=== PATIENT | male | born 1990 | race Caucasian/White ===

== ENCOUNTER 2017-04-02 18:16 | Emergency (ER) | payer SELFPAY ==
[2017-04-02] VITALS (9 sets, daily range): BP systolic 145–213; BP diastolic 66–118; PULSE 84–105; RESP 12–20; TEMP 98.5; O2SAT 95–98
--- NOTE | 2017-04-02 21:41 | PD ---
HPI Chief Complaint: Chest Pain Time Seen by Provider: 21:04 Travel History International Travel<30 days: No Contact w/Intl Traveler<30days: No Traveled to known affect area: No History of Present Illness HPI Patient is a 27-year-old male presents emergency Department with chest tightness middle of his chest which was preceded by left arm numbness and tingling and sharp pain. Patient states she's also experienced shortness of breath as well as some nausea without vomiting. Patient states he is an occasional smoker 1-2 cigarettes a week. Denies a history of high blood pressure high cholesterol or diabetes but has not had a checkup some time. States his father had a heart attack 40 and was by 50. He is morbidly obese. Denies any history of blood clots in his chest or legs denies any history of long trips. Did not try anything prior to arrival to the emergency department. Cannot identify any alleviating or exacerbating factors. PFSH Past Medical History Tetanus Vaccination: > 5 Years Past Surgical History Tonsillectomy: Yes Social History Alcohol Use: No Tobacco Use: Yes (social smoker (usually 3-4/month)) Substance Use: No Allergies-Medications (Allergen,Severity, Reaction): Coded Allergies: Codeine (Verified Allergy, Severe, Itching, 04/02/17) Reported Meds & Prescriptions Reported Meds & Active Scripts Active No Active Prescriptions or Reported Medications Review of Systems Except as stated in HPI: all other systems reviewed are Neg Physical Exam Narrative GENERAL: Well-developed well-nourished morbidly obese patient discomfort. SKIN: Focused skin assessment warm/dry. HEAD: Atraumatic. Normocephalic. EYES: Pupils equal and round. No scleral icterus. No injection or drainage. ENT: No nasal bleeding or discharge. Mucous membranes pink and moist. NECK: Trachea midline. No JVD. CARDIOVASCULAR: Regular rate and rhythm. No murmur appreciated. 2+ bilateral equal pulses in all 4 extremities. RESPIRATORY: No accessory muscle use. Clear to auscultation. Breath sounds equal bilaterally. GASTROINTESTINAL: Abdomen soft, non-tender, nondistended. Hepatic and splenic margins not palpable. MUSCULOSKELETAL: No obvious deformities. No clubbing. No cyanosis. No edema. NEUROLOGICAL: Awake and alert. No obvious cranial nerve deficits. Motor grossly within normal limits. Normal speech. PSYCHIATRIC: Appropriate mood and affect; insight and judgment normal. Data Data Last Documented VS Vital Signs Date Time Temp Pulse Resp B/P Pulse Ox O2 Delivery O2 Flow Rate FiO2 04/03/17 00:35 86 16 143/78 97 Room Air 04/02/17 21:44 2 04/02/17 18:18 98.5 Orders Electrocardiogram (04/02/17 20:03) Ckmb (Isoenzyme) Profile (04/02/17 21:39) Complete Blood Count With Diff (04/02/17 21:39) Comprehensive Metabolic Panel (04/02/17 21:39) D-Dimer (04/02/17 21:39) Magnesium (Mg) (04/02/17 21:39) Prothrombin Time / Inr (Pt) (04/02/17 21:39) Act Partial Throm Time (Ptt) (04/02/17 21:39) Troponin I (04/02/17 21:39) Chest, Single Ap (04/02/17 21:39) Ecg Monitoring (04/02/17 21:39) Bilateral Bp Monitoring (04/02/17 21:39) Iv Access Insert/Monitor (04/02/17 21:39) Oximetry (04/02/17 21:39) Oxygen Administration (04/02/17 21:39) Aspirin Chew (Aspirin Chew) (04/02/17 21:45) Sodium Chloride 0.9% Flush (Ns Flush) (04/02/17 21:45) Nitroglycerin Sl (Nitrostat Sl) (04/02/17 21:45) Sodium Chlorid 0.9% 500 Ml Inj (Ns 500 M (04/02/17 21:45) CKMB (04/02/17 21:45) CKMB% (04/02/17 21:45) Ct Pulmonary Angiogram (04/03/17 ) Iohexol 350 Inj (Omnipaque 350 Inj) (04/03/17 00:06) Labs Laboratory Tests Test 04/02/17 21:45 White Blood Count 13.3 TH/MM3 Red Blood Count 5.17 MIL/MM3 Hemoglobin 14.1 GM/DL Hematocrit 42.6 % Mean Corpuscular Volume 82.3 FL Mean Corpuscular Hemoglobin 27.2 PG Mean Corpuscular Hemoglobin 33.0 % Concent Red Cell Distribution Width 14.6 % Platelet Count 298 TH/MM3 Mean Platelet Volume 9.7 FL Neutrophils (%) (Auto) 74.5 % Lymphocytes (%) (Auto) 16.6 % Monocytes (%) (Auto) 7.4 % Eosinophils (%) (Auto) 1.1 % Basophils (%) (Auto) 0.4 % Neutrophils # (Auto) 9.9 TH/MM3 Lymphocytes # (Auto) 2.2 TH/MM3 Monocytes # (Auto) 1.0 TH/MM3 Eosinophils # (Auto) 0.2 TH/MM3 Basophils # (Auto) 0.1 TH/MM3 CBC Comment DIFF FINAL Differential Comment Prothrombin Time 11.0 SEC Prothromb Time International 1.0 RATIO Ratio Activated Partial 27.9 SEC Thromboplast Time D-Dimer Quantitative (PE/DVT) 0.74 MG/L FEU Sodium Level 139 MEQ/L Potassium Level 4.1 MEQ/L Chloride Level 102 MEQ/L Carbon Dioxide Level 27.0 MEQ/L Anion Gap 10 MEQ/L Blood Urea Nitrogen 13 MG/DL Creatinine 0.62 MG/DL Estimat Glomerular Filtration 156 ML/MIN Rate Random Glucose 90 MG/DL Calcium Level 9.4 MG/DL Magnesium Level 2.4 MG/DL Total Bilirubin 0.5 MG/DL Aspartate Amino Transf 54 U/L (AST/SGOT) Alanine Aminotransferase 40 U/L (ALT/SGPT) Alkaline Phosphatase 132 U/L Total Creatine Kinase 227 U/L Creatine Kinase MB 3.1 NG/ML Troponin I LESS THAN 0.02 NG/ML Total Protein 7.9 GM/DL Albumin 3.5 GM/DL MDM Medical Decision Making Medical Screen Exam Complete: Yes Emergency Medical Condition: Yes Interpretation(s) EKG shows normal sinus rhythm normal axis and normal R-wave progression. No concerning ST segment changes, intervals within normal limits. This is a normal EKG. Differential Diagnosis ACS, AMI, GERD, chest wall pain, pleurisy, PE. Narrative Course Patient roomed in emergency department, does have some risk factors for ACS, his initial workup is notable only for an elevated d-dimer. A CAT scan of his chest performed showed no evidence of PE: Last [address] Angiography 04/03/17 0000 Signed Impressions: Service Date/Time: April 00:01 - CONCLUSION: 1. No evidence of pulmonary embolism. 2. Lungs are clear. Alfa Montana MD Chest X-Ray [id number]/02/[id number] Signed Impressions: Service Date/Time: Sunday, April 02, 2017 21:49 - CONCLUSION: The lungs are clear. Phil Zhou MD Discussed the results with the patient who is feeling somewhat better after nitroglycerin and given his age it is unlikely that this is ACS however cannot completely exclude. He was counseled extensively on abstinence from smoking weight loss and following up with a primary care physician. I did offer him admission to the chest pain center and he would like to go home and follow up outpatient at this time. Was given a referral to Dr. Avery's contact information was provided. Discussed return to ED criteria. Diagnosis Primary Impression: Chest pain Referrals: Lobo Torres MD Patient Instructions: Chest Pain (DC), General Instructions, How to Stop Smoking (DC), Weight Management (DC) Scripts No Active Prescriptions or Reported Meds Disposition: 01 DISCHARGE HOME Condition: Stable Naveen Whitt MD Apr 02, 2017 21:41
[2017-04-02] MEDS ORDERED: NITROGLYCERIN 0.4 MG SL 25 TABS/BTL SL ONE (21:45)
[2017-04-02] MEDS ORDERED: SODIUM CHLORIDE 0.9% FLUSH 10 ML FLUSH IVF PRN (21:45)
[2017-04-02] MEDS ORDERED: ASPIRIN 81 MG CHEW TAB PO ONE (21:45)
[2017-04-02] MEDS ORDERED: SODIUM CHLORID 0.9% 500 ML INJ 500 ML IV ONE (21:45)
[2017-04-02 22:12] LABS: AUTOMATED NEUTROPHIL # 9.9 TH/MM3 (1.8-7.7); BASOPHIL # 0.1 TH/MM3 (0-0.2); BASOPHIL % 0.4 % (0.0-2.0); EOSINOPHIL # 0.2 TH/MM3 (0-0.4); EOSINOPHIL % 1.1 % (0.0-4.0); HEMATOCRIT 42.6 % (39.0-51.0); HEMO FLAGS DIFF FINAL; LYMPH % 16.6 % (9.0-44.0); LYMPHOCYTE # 2.2 TH/MM3 (1.0-4.8); MEAN CELL VOLUME 82.3 FL (80.0-100.0); MEAN CORPUSCULAR HEMOGLOBIN 27.2 PG (27.0-34.0); MONO % 7.4 % (0.0-8.0); NEUT % 74.5 % (16.0-70.0); PLATELET COUNT 298 TH/MM3 (150-450); RED BLOOD COUNT 5.17 MIL/MM3 (4.50-5.90); RED CELL DISTRIBUTION WIDTH 14.6 % (11.6-17.2); WHITE BLOOD COUNT 13.3 TH/MM3 (4.0-11.0)
[2017-04-02 22:33] LABS: APTT (PATIENT) 27.9 SEC (24.3-30.1)
--- NOTE | 2017-04-02 22:33 | RADRPT ---
EXAM DATE/TIME: 04/02/2017 21:49 [facility] COMPARISON: No previous studies available for comparison. INDICATIONS : Chest pain today. MEDICAL HISTORY : None. SURGICAL HISTORY : None. ENCOUNTER: Initial ACUITY: 1 day PAIN SCORE: 6/10 LOCATION: Bilateral chest FINDINGS: A single view of the chest demonstrates the lungs to be symmetrically aerated without evidence of mas s, infiltrate or effusion. The cardiomediastinal contours are unremarkable. The heart is normal siz e for AP technique. Osseous structures are intact. CONCLUSION: The lungs are clear. Phil Zhou MD on April 02, 2017 at 22:31 Board Certified Radiologist. This report was verified electronically.
[2017-04-02 22:38] LABS: ALKALINE PHOSPHATASE 132 U/L (45-117); ALT (GPT) 40 U/L (12-78); ANION GAP 10 MEQ/L (5-15); AST (GOT) 54 U/L (15-37); BLOOD UREA NITROGEN 13 MG/DL (7-18); CHLORIDE 102 MEQ/L (98-107); CREATINE KINASE 227 U/L (39-308); GLOMERULAR FILTRATION RATE 156 ML/MIN (>89); MAGNESIUM 2.4 MG/DL (1.5-2.5); SODIUM (NA) 139 MEQ/L (136-145); TOTAL BILIRUBIN ADULT 0.5 MG/DL (0.2-1.0)
[2017-04-02 22:46] LABS: POTASSIUM 4.1 MEQ/L (3.5-5.1)
[2017-04-02 22:58] LABS: CKMB 3.1 NG/ML (0.5-3.6)
[2017-04-03] MEDS ORDERED: IOHEXOL 350 MG/ML 10 ML VIAL (for RAD DIAG) IV ONE (00:06)
--- NOTE | 2017-04-03 00:20 | RADRPT ---
EXAM DATE/TIME: 04/03/2017 00:01 [facility] COMPARISON: CHEST SINGLE AP, April 02, 2017, 21:49. INDICATIONS : Shortness of breath and chest pain. IV CONTRAST: 70 cc Omnipaque 350 (iohexol) IV RADIATION DOSE: 27.34 CTDIvol (mGy) ; Patient body habitus MEDICAL HISTORY : None SURGICAL HISTORY : None. ENCOUNTER: Initial ACUITY: 1 day PAIN SCALE: 8/10 LOCATION: Bilateral chest TECHNIQUE: Volumetric scanning of the chest was performed using a pulmonary embolism protocol MIP images were re constructed. Using automated exposure control and adjustment of the mA and/or kV according to patien t size, radiation dose was kept as low as reasonably achievable to obtain optimal diagnostic quality images. DICOM format image data is available electronically for review and comparison. Follow-up recommendations for incidentally detected pulmonary nodules are based at a minimum on nodul e size and patient risk factors according to Fleischner Society Guidelines. FINDINGS: PULMONARY ARTERIES: No filling defects are seen in the pulmonary arteries through the segmental level. LUNGS: There is no consolidation or pneumothorax . No concerning pulmonary nodule is visualized. PLEURAE: There is no pleural thickening or pleural effusion. MEDIASTINUM: There is good visualization of the great vessels of the middle mediastinum. No evidence of mediastin al or hilar adenopathy/mass. MUSCULOSKELETAL: Within normal limits for patient age. MISCELLANEOUS: The visualized upper abdominal organs demonstrate no acute abnormality. The liver is enlarged and the re is hepatic steatosis. CONCLUSION: 1. No evidence of pulmonary embolism. 2. Lungs are clear. Alfa Montana MD on April 03, 2017 at 0:17 Board Certified Radiologist. This report was verified electronically.
[2017-04-03 00:35] VITALS: BP 143/78; PULSE 86; RESP 16; O2SAT 97
--- NOTE | 2017-04-03 14:43 | EKG ---
Date Performed: 04/02/2017 Time Performed: 20:03:56 PTAGE: 27 years EKG: Sinus rhythm POSSIBLE LEFT ATRIAL ENLARGEMENT BORDERLINE LEFT AXIS DEVIATION BORDERLINE ECG NO PREVIOUS TRACING DOCTOR: Robina Alejandro Interpretating Date/Time 04/03/2017 14:43:06
== END 2017-04-03 00:55 | disposition home or self-care (01) ==
LOC: NEPD 18:16
DX: R07.9 Chest pain, unspecified (principal); F17.210 Nicotine dependence, cigarettes, uncomplicated; E66.01 Morbid (severe) obesity due to excess calories
CPT/HCPCS: 71010; 71275; 80053; 82550; 82552; 83735; 84484; 85025; 85379; 85610; 85730; 93005; 96360; 99285; J7040; Q9967